=== PATIENT | male | born 1950 | race Caucasian/White ===

== ENCOUNTER 2018-12-07 17:19 | Observation (INO) | payer MEDICARE, BC, OTHER ==
[~2018-12-07 17:19] MED LIST: ISOVUE-370 76%-LOCM 1 ML ONE
[2018-12-07] MEDS ORDERED: Aspirin Chewable 81 MG TAB ONE (17:49)
--- NOTE | 2018-12-07 17:58 | RAD ---
PORTABLE CHEST: 12/07/18 HISTORY: Chest pain, dyspnea. Heart size and mediastinum are within normal limits. The lungs are clear of infiltrates. No signs of failure. IMPRESSION: No active intrathoracic disease. POS: FARHEEN
[2018-12-07 18:01] LABS: #Eosinphils 0.1 thou/uL (0.0-0.7); #Lymphocytes 1.3 thou/uL (1.20-3.40); #Monocytes 0.6 thou/uL (0.11-0.59); #Neutrophils 5.2 thou/uL (1.40-6.50); %Basophils 0.6 % (0.0-1.0); %Eosinophils 0.8 % (0.0-10.0); %Lymphocytes 18.1 % (21.0-51.0); %Monocytes 8.4 % (0.0-10.0); %Neutrophils 72.2 % (42.0-75.0); Hemoglobin 15.3 g/dL (14.0-18.0); Mean Corpuscular HGB CONC 31.9 g/dL (32.0-36.0); Mean Corpuscular Hemoglobin 25.7 pg (27.0-31.0); Mean Corpuscular Volume 80.5 fL (78.0-98.0); Mean Platelet Volume 7.9 fL (7.4-10.4); Platelet Count 223 thou/uL (130-400); RBC Distribution Width 14.9 % (11.5-14.5); Red Blood Cell (RBC) Count 5.96 mill/uL (4.70-6.10); White Blood Cell (WBC) Count 7.3 thou/uL (4.8-10.8)
[2018-12-07 18:24] LABS: ALT (SGPT) 18 U/L (8-55); AST (SGOT) 21 U/L (5-34); Albumin 4.3 g/dL (3.4-4.8); Alkaline Phosphatase 90 U/L (40-150); Anion Gap 14 mmol/L (10-20); BUN (Urea Nitrogen) 11 mg/dL (8.4-25.7); Bilirubin, Total 1.3 mg/dL (0.2-1.2); CK (CPK) 87 U/L (30-200); Calc. Creatinine Clearance 0 mL/min (70-130); Calcium 9.4 mg/dL (7.8-10.44); Carbon Dioxide 30 mmol/L (23-31); Chloride 100 mmol/L (98-107); Estimated GFR-MDRD 76; Globulin 2.6 g/dL (2.4-3.5); Glucose 94 mg/dL (80-115); Potassium 3.6 mmol/L (3.5-5.1); Protein, Total 6.9 g/dL (5.8-8.1); Sodium 140 mmol/L (136-145)
--- NOTE | 2018-12-07 19:24 | CT ---
CT ANGIO CHEST PERFORMED INTRAVENOUS CONTRAST ENHANCEMENT WITH 3D RECONSTRUCTIONS: 12/07/18 HISTORY: Chest pain, dyspnea, heart palpitations. History of PE in 2014. The lungs are clear of any infiltrative process. There are no pulmonary nodules or pleural effusions identified. There is no significant mediastinal, hilar or axillary lymphadenopathy. Small hiatal hernia is noted. The thoracic aorta is normal in caliber. There is good pulmonary artery opacification. There is no CT evidence for pulmonary embolus. The visualized liver parenchyma shows no focal findings. A partially visualized fat containing lesion involving the posterior cortex of the left kidney is noted on a previous CT in 2017. IMPRESSION: No CT evidence for pulmonary embolus. Other findings as noted above. POS: FARHEEN
[2018-12-07] MEDS ORDERED: traMADol HCl 50 MG TAB PO PRN (22:03)
[2018-12-07] MEDS ORDERED: Acetaminophen 325 MG TAB PO PRN (22:04)
[2018-12-07] MEDS ORDERED: Ondansetron PF 4 MG/2 ML Vial IVP PRN (22:04)
[2018-12-07] MEDS ORDERED: traMADol HCl 50 MG TAB ONE (22:43)
[2018-12-07 23:10] VITALS: BMI 31.7
--- NOTE | 2018-12-07 23:22 | HP ---
PRIMARY CARE DOCTOR: Dr. Roshan Romeo. CODE STATUS: He is a full code. TIME OF EVALUATION: 10:00 p.m. CHIEF COMPLAINT: Chest pain and palpitations. HISTORY OF PRESENT ILLNESS: This is a 68-year-old male patient with past medical history of PE, prostate cancer, kidney cancer, hypertension, high cholesterol, came to the hospital after having palpitations associated with chest pain. The symptoms were present for the past 3 days, on and off. Today, the palpitations and the chest pain got worse, symptoms were severe. No clear triggers. No alleviating factors. Also associated with shortness of breath. REVIEW OF SYSTEMS: CONSTITUTIONAL: No fever, chills, or generalized weakness. RESPIRATORY: No cough, sputum production, or shortness of breath. CARDIOVASCULAR: Chest pain and palpitations. GASTROINTESTINAL: No nausea, no vomiting, diarrhea, or abdominal pain. CENTRAL NERVOUS SYSTEM: No dizziness, headache, or feeling lightheaded. GENITOURINARY: No burning on urination. EXTREMITIES: Mild leg swelling 1+. All other systems were reviewed and negative except for the findings mentioned above. PAST MEDICAL HISTORY: As mentioned in the HPI. FAMILY HISTORY: reviewed and non contributory to current presentation. SURGICAL HISTORY: Appendectomy, prostatectomy, bilateral partial nephrectomy, biopsy of the left breast. SOCIAL HISTORY: No alcohol, no drugs. No smoking history. ALLERGIES: KNOWN ALLERGIES TO PENICILLIN AND SULFA. REPORTED MEDICATIONS: Aspirin, lisinopril, allopurinol, doxazosin, Lasix. PHYSICAL EXAMINATION: VITAL SIGNS: On presentation, blood pressure 125/83 with heart rate 72, respiratory rate was 20, temperature 98.2, pain was 4/10. Oxygen saturation 96% on room air. GENERAL APPEARANCE: The patient is alert, oriented, not in acute distress. HEENT: Eyes, normal conjunctivae. Moist oral mucosa. Anicteric. No JVD. RESPIRATORY: Bilateral air entry. No rales. No wheezing. Symmetric expansion. CARDIOVASCULAR: Normal rate, regular rhythm. No murmurs. No gallop. Bilateral leg edema. ABDOMEN: Soft. Normal bowel sounds. MUSCULOSKELETAL: Baseline range of motion and strength. No tenderness. SKIN: Warm, intact. No pallor. No rash. No redness. VASCULAR: Peripheral pulses are present. Capillary refill seems to be intact. NEUROLOGIC: No evidence of any new focal weakness. Baseline speech. Cranial nerves seem to be intact. PSYCHIATRIC: The patient is in good mood. No anxiety. Optimal judgment. DIAGNOSTIC STUDIES: EKG was reviewed. The patient has normal sinus rhythm with rightward axis, ventricular rate 69, FL 170, QRS 108, QT corrected 426. CT angio was done. The patient had no CTA evidence of pulmonary embolism. Chest x-ray was reviewed. The patient has no active intrathoracic disease. LABORATORY DATA: Labs were reviewed. The patient has white count 7.3, hemoglobin 15.3, MCV 80, platelet count 233. Chemistry; sodium 140, potassium 3.6, chloride 100, carbon dioxide 30, anion gap 14, BUN 11, creatinine 0.98, GFR 76, glucose 94, calcium 9.4, total bilirubin 1.3, AST 21, ALT 18, alkaline phosphatase was 90 with CK 87, troponin 0.010, second one 0.029. ASSESSMENT AND PLAN: The patient will be placed in the hospital with following medical problems; 1. Chest pain, rule out acute coronary syndrome. The initial troponin was negative, second one 0.029. On the EKG, no significant acute ischemic events were noticed. We will trend troponins, monitor on tele, stress test in the morning. 2. Palpitations, unclear etiology. We will monitor on tele. We will try to see if the patient develop any arrhythmia. 3. Hypertension. This problem is chronic, uncontrolled, systolic blood pressure 161/84. We will reconcile home medications, we will adjust treatment as needed. 4. Deep venous thrombosis prophylaxis. 5. Hyperlipidemia. Reconcile home meds, low-cholesterol diet is advised. Job ID: [id number] MTDD
[2018-12-08 02:47] LABS: #Eosinphils 0.1 thou/uL (0.0-0.7); #Lymphocytes 1.4 thou/uL (1.20-3.40); #Monocytes 0.7 thou/uL (0.11-0.59); #Neutrophils 5.8 thou/uL (1.40-6.50); %Basophils 0.3 % (0.0-1.0); %Eosinophils 0.8 % (0.0-10.0); %Lymphocytes 17.8 % (21.0-51.0); %Monocytes 8.6 % (0.0-10.0); %Neutrophils 72.5 % (42.0-75.0); Mean Corpuscular HGB CONC 32.7 g/dL (32.0-36.0); Mean Corpuscular Volume 79.7 fL (78.0-98.0); Mean Platelet Volume 7.7 fL (7.4-10.4); Platelet Count 228 thou/uL (130-400); RBC Distribution Width 14.8 % (11.5-14.5); Red Blood Cell (RBC) Count 5.38 mill/uL (4.70-6.10); White Blood Cell (WBC) Count 8.1 thou/uL (4.8-10.8)
[2018-12-08 03:24] LABS: Anion Gap 13 mmol/L (10-20); BUN (Urea Nitrogen) 12 mg/dL (8.4-25.7); Calc. Creatinine Clearance 118 mL/min (70-130); Calcium 8.7 mg/dL (7.8-10.44); Carbon Dioxide 26 mmol/L (23-31); Chloride 103 mmol/L (98-107); Estimated GFR-MDRD 84; Glucose 148 mg/dL (80-115); Potassium 3.5 mmol/L (3.5-5.1); Sodium 138 mmol/L (136-145)
[2018-12-08] MEDS ORDERED: Furosemide 20 MG TAB PO SCH (08:30)
[2018-12-08] MEDS ORDERED: Doxazosin 2 MG TAB PO SCH (09:00)
[2018-12-08] MEDS ORDERED: Lisinopril 10 MG TAB PO SCH (09:00)
[2018-12-08] MEDS ORDERED: Aspirin 81 mg Enteric Coated Tablet PO SCH (09:00)
[2018-12-08] MEDS ORDERED: Allopurinol 100 MG TAB PO SCH (09:00)
[2018-12-08] MEDS ORDERED: Lisinopril 5 MG TAB PO SCH (09:00)
[2018-12-08] MEDS ORDERED: Enoxaparin Sodium 40 MG/0.4 ML SYRINGE SC SCH (09:00)
[2018-12-08 09:50] LABS: Cardiac Risk 5.6 (Less than 4.5)
--- NOTE | 2018-12-08 15:07 | NM ---
MYOCARDIAL PERFUSION SCAN WITH SPECT IMAGING: HISTORY: Chest pain. TECHNIQUE/FINDINGS: Examination is performed using 30.8 mCi 99m-technetium sestamibi on the stress and 9.4 on the resting images. This shows a normal distribution of radiopharmaceutical. No signs of ischemia or scar. WALL MOTION: There is symmetric contractility to the ventricle. LEFT VENTRICULAR EJECTION FRACTION: The calculated left ventricular ejection fraction is 68%. IMPRESSION: Unremarkable myocardial perfusion scan. POS: ALFIE
[2018-12-08 15:52] VITALS: BP 141/71; TEMP 98.1
--- NOTE | 2018-12-09 05:49 | DIS ---
DATE OF ADMISSION: 12/07/2018 DATE OF DISCHARGE: 12/08/2018 PRIMARY CARE PHYSICIAN: Dr. Romeo. CONSULTANTS: None. PROCEDURES: The patient had a CTA of the chest which showed no CT evidence of a pulmonary emboli. Other findings, visualized fat containing lesion involving the posterior cortex of the left kidney which was noted on the previous CT in 2017. Chest x-ray, impression, no active intrathoracic disease. Nuclear stress test, impression, unremarkable myocardial perfusion scan. HOSPITAL COURSE: Mr. Duran is a 68-year-old male, who presented to the emergency room on day of admission after complaining of chest pain with palpitations, which have been present for the previous 3 days intermittently. On day of admission, chest pain became worse, also associated with shortness of breath. The patient had a past medical history of pulmonary emboli in the past, prostate cancer, kidney cancer, hypertension, high cholesterol, became worried that the pain he was having was associated with an another emboli and wanted an evaluation. Initial troponin was in the indeterminate range at 0.029. Next two were undetectable. CK MB was 1. The patient was admitted to the observation unit for further management. There were no EKG changes. Strips while he was in the observation unit show normal sinus rhythm with occasional PACs. Stress test was negative. The patient denied any further chest pain while admitted. The patient was discharged home to follow up primary care in the next week. DISCHARGE DIAGNOSES: 1. Chest pain, etiology unknown. 2. Hypertension. 3. History of pulmonary emboli. 4. Hyperlipidemia. 5. The patient reports that triglycerides of 164 is chronic for him. He has been tried on all statins and has myalgias and refuses to take them. He was initially restarted on them, but the patient refused. REVIEW OF SYSTEMS: The patient was examined prior to discharge. He denied any chest pain, shortness of breath, palpitations, was initially sleeping on arrival as he had not slept well overnight, was in no distress, and was anxious to return home. All other symptoms and systems were reviewed and are negative unless mentioned in the hospital course. PHYSICAL EXAMINATION: VITAL SIGNS: Temp 98.3, pulse is 69, respirations 16, pulse ox is 96% on room air, and blood pressure 155/83. CONSTITUTIONAL: The patient appears nontoxic, appears pain free, is alert and oriented to person, place, and time. HEENT: Head is atraumatic and normocephalic. Eyes; extraocular muscles are intact. Pupils are equal, round, and reactive to light. ENT, mouth exam is normal. Mucous membranes are moist. NECK: Normal range of motion. Trachea is midline. RESPIRATORY AND CHEST: Breath sounds are clear. No findings of respiratory distress. CARDIOVASCULAR: Heart rate is normal rate and rhythm. Heart sounds are normal. ABDOMEN: Soft and nontender on palpation. Bowel sounds are heard. BACK: Normal inspection and normal range of motion of upper extremities. Normal inspection and normal range of motion of lower extremities. Inspection is normal. Motor strength is normal. Pedal pulses are equal bilaterally. No edema is noted. NEUROLOGIC: The patient is alert and oriented to person, place, and time. No focal or sensory deficits noted. SKIN: Warm, dry, normal in color. ALLERGIES: 1. PENICILLIN. 2. SULFA. 3. REPORTS ADVERSE REACTION TO ALL STATINS. HOME MEDICATIONS: Restarted, 1. Zyloprim 100 mg p.o. daily. 2. Cardura 4 mg p.o. b.i.d. 3. Furosemide 20 mg p.o. Monday, Monday, and Monday. 4. Lisinopril 5 mg p.o. daily. 5. The patient reports taking 1 g of aspirin b.i.d. for his PE. This was not continued, instead suggested 81 mg p.o. daily. 6. Pepcid 20 mg p.o. b.i.d. was started. 7. The patient had tramadol 50 mg p.o. q.6 hours p.r.n., which was continued as needed. No new prescription was written. DISCHARGE CONDITION: Stable. The patient will be discharged home. The patient should visit with Dr. Romeo within 1 week. Job ID: [id number]
[2018-12-10] MEDS ORDERED: Furosemide 20 MG TAB PO SCH (09:00)
--- NOTE | 2018-12-15 16:00 | EKG ---
Test Reason : Blood Pressure : / mmHG Vent. Rate : 069 BPM Atrial Rate : 069 BPM P-R Int : 170 ms QRS Dur : 108 ms QT Int : 398 ms P-R-T Axes : -09 097 026 degrees QTc Int : 426 ms Normal sinus rhythm Rightward axis Borderline ECG Confirmed by SALVADOR DANG ([id number]), book or script editor GERMANIA WHITNEY ([id number] on 12/15/2018 3:59:34 PM Referred By: Confirmed By:SALVADOR DANG
== END 2018-12-08 17:57 | disposition home or self-care (01) ==
LOC: ERS 17:19 → 2SW 21:40
PROVIDERS: ADMIT Hospitalist; ATTEND Hospitalist
DX: R07.9 Chest pain, unspecified (principal); R00.2 Palpitations; I10 Essential (primary) hypertension; E78.00 Pure hypercholesterolemia, unspecified; Z86.711 Personal history of pulmonary embolism; Z85.46 Personal history of malignant neoplasm of prostate; Z85.528 Personal history of other malignant neoplasm of kidney; Z90.49 Acquired absence of other specified parts of digestive tract; Z90.79 Acquired absence of other genital organ(s); Z90.5 Acquired absence of kidney; Z88.0 Allergy status to penicillin; Z88.2 Allergy status to sulfonamides; Z88.8 Allergy status to other drugs, medicaments and biological substances; Z79.82 Long term (current) use of aspirin; Z98.890 Other specified postprocedural states; Z79.899 Other long term (current) drug therapy
CPT/HCPCS: 71045; 71275; 78452; 80048; 80053; 80061; 82550; 82553; 84443; 84484 ×3; 85025 ×2; 93005; 93017; 94760; 96360; 96372; 99285; A9500; G0378 ×2; 36415; J1650; Q9966

== ENCOUNTER 2020-05-14 15:39 | Outpatient (CLI) | payer MEDICARE, BC, OTHER ==
--- NOTE | 2020-05-14 16:30 | RAD ---
LUMBAR SPINE TWO VIEWS: 05/14/20 HISTORY: Acute right sided low back pain without sciatica. FINDINGS: Multilevel degenerative changes are present. No fracture, subluxation, or bony destruction identified . IMPRESSION: Lumbar spondylosis. POS: ALFIE
== END 2020-05-14 15:40 | disposition home or self-care (01) ==
LOC: BICRAD 15:39
PROVIDERS: ATTEND Family Medicine
DX: M54.5 Low back pain (principal); M47.816 Spondylosis without myelopathy or radiculopathy, lumbar region
CPT/HCPCS: 72100

== ENCOUNTER 2020-11-11 07:55 | Outpatient (CLI) | payer MEDICARE, BC, OTHER ==
--- NOTE | 2020-11-11 09:40 | CT ---
EXAM: CT Abdomen Pelvis W WO con PROVIDED CLINICAL HISTORY: History of renal cell carcinoma COMPARISON: 09/13/2017 FINDINGS: There is a stable nodular density demonstrated involving the right middle lobe. The visualized lung b ases appear otherwise clear. Postoperative changes involving each kidney redemonstrated. There is stable multifocal fat necrosis d emonstrated involving the posterior perirenal fat. There is nonmasslike diminished attenuation involving the adjacent renal cortex posteriorly, not significantly changed with respect to the prior study. There is no evidence for enhancing mass. The delayed images demonstrate no evidence for filling defect involving the renal collecting systems, opacified ureters or urinary bladder. The solid abdominal organs demonstrate an otherwise unremarkable CT appearance. There is no bowel dil atation, inflammatory fat stranding, free fluid or lymph node enlargement apparent. Occasional atherosclerotic vascular calcifications are seen. There is a retroaortic left renal vein. The osseous structures demonstrate no concerning lytic or blastic lesions. IMPRESSION: Stable exam.
[2020-11-11] MEDS ORDERED: Iopamidol-370 76% 500 ML 1 ML ONE (13:05)
== END 2020-11-11 07:56 | disposition home or self-care (01) ==
LOC: BICCT 07:55
PROVIDERS: ATTEND Urology
DX: C64.2 Malignant neoplasm of left kidney, except renal pelvis (principal); C64.1 Malignant neoplasm of right kidney, except renal pelvis
CPT/HCPCS: 74178; 82565; Q9967

== ENCOUNTER 2022-02-04 09:02 | Outpatient (CLI) | payer MEDICARE, BC, OTHER | END 2022-02-04 09:03 | disposition home or self-care (01) | LOC: BICCT 09:02 | PROVIDERS: ATTEND Urology | DX: C64.1 Malignant neoplasm of right kidney, except renal pelvis (principal); C64.2 Malignant neoplasm of left kidney, except renal pelvis | CPT/HCPCS: 74178; 82565 ==

== ENCOUNTER 2024-01-03 15:25 | Outpatient (CLI) | payer MEDICARE, BC, OTHER | END 2024-01-03 15:26 | disposition home or self-care (01) | LOC: ULT 15:25 | PROVIDERS: ATTEND Family Medicine | DX: M79.604 Pain in right leg (principal) ==

== ENCOUNTER 2024-08-23 12:53 | Emergency (ER) | payer MEDICARE, BC, OTHER ==
[~2024-08-23 12:53] MED LIST changes: -ISOVUE-370 76%-LOCM 1 ML ONE; +Iopamidol-370 76% 500 ML MDV (1 ML CHARGE) ONE
[2024-08-23 14:03] LABS: #Basophils 0.04 10x3/uL (0.0-0.2); #Eosinophils Less than 0.03 10x3/uL (0.0-0.7); %Basophils 0.5 % (0.0-1.0); %Eosinophils 0.1 % (0.0-10.0); %Lymphocytes 6.9 % (21.0-51.0); %Monocytes 7.7 % (0.0-10.0); %Neutrophils 84.6 % (42.0-75.0); Hematocrit 46.4 % (42.0-52.0); Hemoglobin 14.8 g/dL (14.0-18.0); Mean Corpuscular HGB CONC 31.9 g/dL (32.0-36.0); Mean Corpuscular Hemoglobin 25.3 pg (27.0-31.0); Mean Corpuscular Volume 79.2 fL (78.0-98.0); Mean Platelet Volume 10.1 fL (7.4-10.4); Platelet Count 197 10x3/uL (130-400); RBC Distribution Width 15.1 % (11.5-14.5); Red Blood Cell (RBC) Count 5.86 mill/uL (4.70-6.10)
[2024-08-23 14:18] LABS: INR-International Normal Ratio 1.1; PTT 29.9 sec (22.9-36.1); Prothrombin Time 14.3 sec (12.0-14.7)
[2024-08-23 14:20] LABS: ALT (SGPT) 13 U/L (8-55); AST (SGOT) 16 U/L (5-34); Albumin 3.5 g/dL (3.4-4.8); Alkaline Phosphatase 56 U/L (40-110); Anion Gap 11 mmol/L (10-20); BUN (Urea Nitrogen) 11 mg/dL (8.4-25.7); Bilirubin, Total 1.6 mg/dL (0.2-1.2); Calc. Creatinine Clearance 0 mL/min (70-130); Calcium 8.3 mg/dL (7.8-10.44); Carbon Dioxide 27 mmol/L (23-31); Chloride 105 mmol/L (98-107); Estimated GFR 79; Globulin 2.6 g/dL (2.4-3.5); Glucose 107 mg/dL (83-110); Potassium 3.6 mmol/L (3.5-5.1); Protein, Total 6.1 g/dL (5.8-8.1); Sodium 139 mmol/L (136-145)
[2024-08-23 16:00] LABS: Bilirubin Negative (Negative); Blood, Urine 3+ (Negative); CAUTI Indications for Culture Acute Hematuria; Clarity Extra Turbid (Clear); Ketone, Urine Trace mg/dL (Negative); Leukocyte 75 Leu/uL (Negative); Nitrite Negative (Negative); Specific Gravity, Urine 1.024 (1.002-1.036); Urobilinogen Normal mg/dL (Less than 2)
[2024-08-23 16:04] LABS: Glucose, Urine (Dipstick) 30 mg/dL (Negative); Protein, Urine (Dipstick) 300 mg/dL (Neg-Trace)
[2024-08-23 16:07] LABS: Urine Culture Reflex No No
[2024-08-23 16:35] LABS: Bacteria/HPF None Seen HPF (None Seen); RBC/HPF Greater than 50 HPF (0-3); Squamous Epithelial None Seen HPF (0-3); WBC/HPF Greater than 50 HPF (0-3)
[2024-08-23 16:42] LABS: Urine Culture Reflex Yes Yes
[2024-08-23] MEDS ORDERED: Iopamidol 100 ML FS ONE (16:43)
[2024-08-23] MEDS ORDERED: Lidocaine 2% 6 ML (Jelly) SYR ONE (17:06)
[2024-08-23] MEDS ORDERED: LevoFLOXacin 500 MG TAB ONE (18:46)
== END 2024-08-23 19:07 | disposition home or self-care (01) ==
LOC: ERS 12:53
DX: S30.21XA Contusion of penis, initial encounter (principal); N39.0 Urinary tract infection, site not specified; I10 Essential (primary) hypertension; W01.198A Fall on same level from slipping, tripping and stumbling with subsequent striking against other object, initial encounter; Y93.89 Activity, other specified; Z79.82 Long term (current) use of aspirin; Z79.02 Long term (current) use of antithrombotics/antiplatelets; Z86.711 Personal history of pulmonary embolism
CPT/HCPCS: 51610; 74177; 74450; 80053; 81001; 85025; 85610; 85730; 87086; 99284; Q9967 ×2